=== PATIENT | female | born 1980 | race Caucasian/White ===

== ENCOUNTER 2016-05-02 00:51 | Inpatient (IN) ==
[2016-05-02 01:07] LABS: URINE CULTURE PL NEEDED? NO
[2016-05-02 01:07] LABS: MANUAL DIFF NEEDED? NO
[2016-05-02 01:14] LABS: BILIRUBIN URINE NEGATIVE (NEGATIVE); BLOOD URINE NEGATIVE (NEGATIVE); CLARITY CLEAR (CLEAR); COLOR YELLOW; GLUCOSE URINE NEGATIVE (NEGATIVE); LEUKOCYTES URINE NEGATIVE (NEGATIVE); NITRITE URINE NEGATIVE (NEGATIVE); PH URINE 6.5; PROTEIN URINE NEGATIVE (NEGATIVE); UROBILINOGEN URINE NORMAL
[2016-05-02 01:19] LABS: UR AMPHETAMINES QUAL NONE DETECTED (NONE DETECT); UR BARBITUATES QUAL NONE DETECTED (NONE DETECT); UR BENZODIAZEPIN QUAL PRESUMPTIVE POSITIVE (NONE DETECT); UR CANNABINOIDS QUAL PRESUMPTIVE POSITIVE (NONE DETECT); UR COCAINE QUAL NONE DETECTED (NONE DETECT); UR MDMA QUAL NONE DETECTED (NONE DETECT); UR METHADONE QUAL NONE DETECTED (NONE DETECT); UR METHAMPHETAMINE QUAL NONE DETECTED (NONE DETECT); UR OPIATES QUAL NONE DETECTED (NONE DETECT); UR OXYCODONE QUAL NONE DETECTED (NONE DETECT); UR PCP QUAL NONE DETECTED (NONE DETECT); UR TCA QUAL NONE DETECTED (NONE DETECT)
[2016-05-02 01:30] LABS: BASO% 1.5 % (0.0-0.8); EOS# 0.37 X1000 (0.0-0.7); EOS% 5.4 % (0.0-10.0); HEMATOCRIT 36.5 % (37.0-47.0); HEMOGLOBIN 12.6 g/dL (12.0-16.0); IMM GRAN# 0.01 X1000 (0.0-0.04); IMM GRAN% 0.1 % (0.0-0.5); LYMPH# 3.02 X1000 (1.2-3.4); MCH 29.5 PG (27-31); MCHC 34.5 g/dL (33-37); MCV 85.5 FL (81-99); MONO# 0.57 X1000 (0.11-0.59); MONO% 8.3 % (1.7-9.3); MPV 10.5 FL (7.4-10.4); NEUT% 40.7 % (42.2-75.2); PLT 278 X1000 (130-400); RBC 4.27 XMIL (4.2-5.4)
--- NOTE | 2016-05-02 01:30 | PROVIDER DOCUMENTATION ---
HPI-Head Injury <Odalis RoqueSal - Last Filed: 05/02/16 01:49> - General Source: patient - History of Present Illness-Head Injury Head Injury Location: reports: other (facial-left cheekbone) Other injuries associated with incident:: reports: head Severity: reports: moderate Onset/Duration: reports: this evening Timing: reports: still present Method of Injury: reports: fell Any recent trauma/injury?: reports: other (face) Loss of Consciousness: dazed Injury Associated Symptoms: reports: headaches, nausea. denies: vomiting, weakness <Inez Truong - Last Filed: 05/02/16 02:48> <Enrique Simpsno - Last Filed: 05/02/16 04:09> - General Chief Complaint: Overdose Stated Complaint: overdose Time Seen by Provider: 05/02/16 01:09 Allergies/Adverse Reactions: Patient Allergies Allergy/AdvReac Type Severity Reaction Status Date / Time Penicillins Allergy Mild NAUSEA Verified 11/08/15 20:54 Home Medications: Home Medication List Medication Instructions Recorded Confirmed Last Taken Type Hydroxyzine Pamoate [Vistaril] 25 mg PO TID PRN PRN #90 capsule 11/08/15 Unknown Rx Paroxetine HCl [Paxil] 20 mg PO DAILY #30 tablet 11/08/15 Unknown Rx Prochlorperazine [Compazine] 10 mg PO TID PRN PRN #20 tablet 11/08/15 Unknown Rx - History of Present Illness-Head Injury Nature of Presenting Problem: 35 Y/O F presents to ED with Overdose. Pt states that she doesn't remember how she got to the hospital. Pt was brought in by EMS, EMS stated that Pt " fell in the bathtub", pt was found in the bathtub,intoxicated. Pt stated that she took 3 bars of Xanax and ETOH. Nauseated with dry heaves in ED. Sleepy but able to arouse. Pt has a hematoma on her cheekbone and left eye. Pt states that she remembers arguing with her ex, was drinking and went to her brother's house took the Xanax, also states she takes Prozac for her depression, and smokes marijuana everyday. Pt was given Zofran and Narcan by EMS. (Inez Truong) Review of Systems - Adult - REVIEW OF SYSTEMS - ADULT Constitutional: denies: chills, fever Eyes: reports: other (swollen left eye, contussion above right eye) Ears, Nose, Mouth & Throat: reports: no symptoms reported Cardiovascular: reports: no symptoms reported Respiratory: reports: no symptoms reported Gastrointestinal: reports: nausea. denies: abdominal pain, diarrhea, vomiting Genitourinary: reports: no symptoms reported Musculoskeletal: reports: no symptoms reported Integumentary: reports: no symptoms reported Neurological: reports: headache/migraines, syncope. denies: dizziness/vertigo Psychiatric: reports: anti-depressant use, alcohol/drug dependence Endocrine: reports: no symptoms reported Hematologic/Lymphatic: reports: no symptoms reported Allergic/Immunologic: reports: no symptoms reported All Other Systems: Reviewed and Negative <Inez Truong - Last Filed: 05/02/16 02:48> Past History - Adult - PAST MEDICAL HISTORY-ADULT Review of Records: reports: Old Records Reviewed, Nursing Assessment Review, Medications Reviewed, Social history reviewed & non-contributory. Musculoskeletal: reports: other fractures (RT 5TH FINGER) Neurological: reports: Seizures/Epilepsy Psychiatric: reports: anxiety, other Endocrine/Immune: reports: denies history Other Conditions: reports: denies history - PRIOR SURGERIES/PROCEDURES Surgical/Procedure History: reports: orthopedic (extremity) - IMMUNIZATION STATUS Childhood Immunizations: See Nurse Assessment Flu Vaccine: See Nurse Assessment - FAMILY HISTORY Family History: reviewed, not pertinent - SOCIAL HISTORY Substance Use: marijuana <DionneInez Mtz Last Filed: 05/02/16 02:48> Physical Exam- Neurological - Physical Exam-Neuro Initial Vital Signs Reviewed: Yes General Appearance: appears well, no apparent distress, anxious Eye Exam: bilateral eye: normal inspection, PERRL, EOMI HENMT: moist mucous membranes, other (left superior and inferior orbit with ecchymosis and STS) Neck: non-tender, full range of motion, supple Respiratory: chest non-tender, lungs clear, normal breath sounds Cardiovascular: regular rate, rhythm, no edema Abdominal Exam: normal bowel sounds, non tender, soft Extremity: normal inspection, no pedal edema [facility] [employer] [facility] Exam: normal hearing, normal speech, PERRL Motor/Sensory: no motor deficit, no sensory deficit Neurologic: [facility] II-XII nml as tested, grossly normal, no motor/sensory deficits Integumentary: normal color, normal turgor, warm/dry. negative: signs of IVDA Psych/Mental Status: anxious - Glascow Coma Scale Best Eye Response: (4) open spontaneously Best Verbal Response: (5) oriented Best Motor Response: (6) obeys commands Total Glascow Score: 15 (admits she is unsure how she got to the hospital but knows she is at the hospital) <Odalis Roque - Last Filed: 05/02/16 01:49> Progress - CHANGE OF SHIFT REPORT (ED Provider) Report Given and Care Transferred to:: [facility] Time of Transfer: 01:49 Items Pending: Labs, CT/MRI Results <Odalis Roque - Last Filed: 05/02/16 01:49> - CHANGE OF SHIFT REPORT (ED Provider) Report Given and Care Transferred to:: Time of Transfer: 02:00 Items Pending: Labs, Other ([id number], POC) <Inez Truong - Last Filed: 05/02/16 02:48> - CT/MRI 1 CT Study: Cervical Spine, Head Impression: Normal <Enrique Simpson - Last Filed: 05/02/16 04:09> - PLAN OF CARE/RESULTS Progress/Plan/Lab Results: Laboratory Tests 05/02/16 05/02/16 05/02/16 00:53 00:53 00:53 WBC 6.86 RBC 4.27 Hgb 12.6 Hct 36.5 L MCV 85.5 MCH 29.5 MCHC 34.5 RDW Std Deviation 12.2 Plt Count 278 MPV 10.5 H Immature Gran % (Auto) 0.1 Neut % (Auto) 40.7 L Lymph % (Auto) 44.0 Gem % (Auto) 8.3 Eos % (Auto) 5.4 Baso % (Auto) 1.5 H Immature Gran # (Auto) 0.01 Neut # (Auto) 2.79 Lymph # (Auto) 3.02 Gem # (Auto) 0.57 Eos # (Auto) 0.37 Baso # (Auto) 0.10 Sodium 141 Potassium 3.4 L Chloride 105 Carbon Dioxide 23 L Anion Gap 13 BUN 11 Creatinine 0.5 Estimated GFR/1.73 m2 > 60 BUN/Creatinine Ratio 22 Glucose 83 Calculated Osmolality 280 Calcium 8.0 L Total Bilirubin 0.30 AST 11 ALT 9 L Alkaline Phosphatase 50 Total Protein 6.5 Albumin 4.1 Globulin 2.0 Albumin/Globulin Ratio 2.0 Urine Source Urine Color Urine Clarity Urine pH Ur Specific Wetmore Urine Protein Urine Ketones Urine Blood Urine Nitrite Urine Bilirubin Urine Urobilinogen Urine Microscopic RBC Urine WBC Urine Microscopic WBC Ur Epithelial Cells Urine Bacteria Urine Glucose Salicylates < 3.00 L Urine Opiates Screen Ur Oxycodone Screen Urine Methadone Screen Acetaminophen < 1.2 L Ur Barbituates Screen Ur Tricyclics Screen Ur Phencyclidine Scrn Ur Amphetamines Screen U Methamphetamines Scrn Urine MDMA Screen U Benzodiazepines Scrn Urine Cocaine Screen U Cannabinoids Screen Plasma/Serum Ethyl Alc 206 H 05/02/16 05/02/16 01:00 01:00 WBC RBC Hgb Hct MCV MCH MCHC RDW Std Deviation Plt Count MPV Immature Gran % (Auto) Neut % (Auto) Lymph % (Auto) Gem % (Auto) Eos % (Auto) Baso % (Auto) Immature Gran # (Auto) Neut # (Auto) Lymph # (Auto) Gem # (Auto) Eos # (Auto) Baso # (Auto) Sodium Potassium Chloride Carbon Dioxide Anion Gap BUN Creatinine Estimated GFR/1.73 m2 BUN/Creatinine Ratio Glucose Calculated Osmolality Calcium Total Bilirubin AST ALT Alkaline Phosphatase Total Protein Albumin Globulin Albumin/Globulin Ratio Urine Source CATH Urine Color YELLOW Urine Clarity CLEAR Urine pH 6.5 Ur Specific Wetmore 1.000 Urine Protein NEGATIVE Urine Ketones NEGATIVE Urine Blood NEGATIVE Urine Nitrite NEGATIVE Urine Bilirubin NEGATIVE Urine Urobilinogen NORMAL Urine Microscopic RBC <10 Urine WBC NEGATIVE Urine Microscopic WBC <10 Ur Epithelial Cells <10 Urine Bacteria NEGATIVE Urine Glucose NEGATIVE Salicylates Urine Opiates Screen NONE DETECTED Ur Oxycodone Screen NONE DETECTED Urine Methadone Screen NONE DETECTED Acetaminophen Ur Barbituates Screen NONE DETECTED Ur Tricyclics Screen NONE DETECTED Ur Phencyclidine Scrn NONE DETECTED Ur Amphetamines Screen NONE DETECTED U Methamphetamines Scrn NONE DETECTED Urine MDMA Screen NONE DETECTED U Benzodiazepines Scrn PRESUMPTIVE POSITIVE A Urine Cocaine Screen NONE DETECTED U Cannabinoids Screen PRESUMPTIVE POSITIVE A Plasma/Serum Ethyl Alc Orders Category Date Time Status Admit - [facility] Routine AdmDCTranf 05/02/16 04:03 Ordered Activity - Bed Rest with BRP ORDERED Care 05/02/16 04:03 Active Arellano Cath Insertion ORDERED Care 05/02/16 00:59 Active Misc. NRSG Communication Order DIRECTED Care 05/02/16 01:04 Active Neurological Check Q4H Care 05/02/16 04:04 Active Vital Signs Order ARRIVAL TO ROOM Care 05/02/16 04:03 Active Vital Signs Order Q 4-HR ASSESS Care 05/02/16 04:03 Active Regular Diet Diet 05/02/16 04:05 Active HEAD/C-SPINE W/O CONTRAST [CT] Stat Exams 05/02/16 01:49 Taken ACETAMINOPHEN [TDM] Stat Lab 05/02/16 00:53 Completed CBC WITH DIFF [HEME] Stat Lab 05/02/16 00:53 Completed COMPREHENSIVE METABOLIC PANEL [CHEM] Stat Lab 05/02/16 00:53 Completed ETOH [ALCOHOL BLOOD] Stat Lab 05/02/16 00:53 Completed SALICYLATES [TDM] Stat Lab 05/02/16 00:53 Completed UA NIMS W/REFLEX CULT PL [URINALYSIS] Stat Lab 05/02/16 01:00 Completed URINE DRUG SCREEN PL Stat Lab 05/02/16 01:00 Completed 0.9% Sodium Chloride Inj [Ns] 1,000 ml Med 05/02/16 04:15 Ordered IV 125 mls/hr Telemetry [OM.EQ] Routine Oth 05/02/16 04:03 Active Transfer/Admit Order [TRANSFER] Routine Transfer 05/02/16 04:06 Ordered Vital Signs - 24 hr 05/02/16 05/02/16 05/02/16 00:51 01:02 03:06 Pulse Rate 102 H 84 95 H Respiratory 24 20 19 Rate Blood Pressure 133/92 117/69 91/53 O2 Sat by Pulse 97 100 97 Oximetry Vital Signs - 24 hr 05/02/16 05/02/16 05/02/16 00:51 01:02 03:06 Pulse Rate 102 H 84 95 H Respiratory 24 20 19 Rate Blood Pressure 133/92 117/69 91/53 O2 Sat by Pulse 97 100 97 Oximetry (Enrique Simpson) Departure <Odalis Roque - Last Filed: 05/02/16 01:49> <Inez Truong - Last Filed: 05/02/16 02:48> - Departure Time of Disposition Order: 04:08 Certified Medical Emergency: Emergent <Enrique Simpson - Last Filed: 05/02/16 04:09> - Departure DIAGNOSIS: Overdose of benzodiazepine, Alcohol abuse Disposition: ADMITTED INPATIENT 09 Condition: Stable Attestation - Scribe Verification/Attestation Scribe:: Inez Truong Acting as Scribe for:: Enrique Simpson Scribe documention review:: This chart was documented by a scribe and accurately reflects the service the provider performed and the decisions made by the provider. - Physician/ LOVE Attestation Patient care was provided by Advanced Practice Provider:: Yes Advanced Practice Provider:: Odalis Roque Advanced Practice Provider documentation review:: The Mid-level provider documentation, treatment plan and medical decision making was reviewed by the physician who agrees with all treatment and medical decision making by the MLP. <Inez Truong - Last Filed: 05/02/16 02:48> Physician Attestation
[2016-05-02 01:35] LABS: URINE SOURCE CATH
[2016-05-02 01:36] LABS: URINE EPITHELIAL CELLS <10 /HPF (<10); URINE RBC <10 /HPF (<10); URINE WBC <10 /HPF (<10)
[2016-05-02 01:54] LABS: ACETAMINOPHEN < 1.2 ug/mL (10-30); AGAP 13; ALBUMIN 4.1 g/dL (3.5-5.0); ALKALINE PHOSPHATASE 50 U/L (32-104); BUN 11 mg/dL (8-22); CHLORIDE 105 mmol/L (98-107); COSMO 280; GOT 11 U/L (10-30); GPT 9 U/L (10-36); POTASSIUM 3.4 mmol/L (3.5-5.1); SODIUM 141 mmol/L (136-145); TCO2 23 mmol/L (25-35); TOTAL PROTEIN 6.5 g/dL (6.3-8.3)
[2016-05-02] MEDS: NS 1,000 ML IV SCH ×2 (05:00→12:25)
[2016-05-02] MEDS: ZOFRAN IV PRN ×4 (05:15→21:31)
--- NOTE | 2016-05-02 06:37 | Diag Imaging Result Document ---
PROCEDURE NAME: HEAD/C-SPINE W/O CONTRAST - 05/02/2016 CT BRAIN AND CERVICAL SPINE WITHOUT CONTRAST: TECHNIQUE: Dose-reduction protocol. BRAIN WITHOUT: FINDINGS: No parenchymal hemorrhage. No epidural or subdural hematoma. No subarachnoid hemorrhage. No hydrocephalus. No mass identified on this noncontrasted exam. No skull fracture. No sinus opacification. IMPRESSION: No hemorrhage. No injury. CT CERVICAL SPINE WITHOUT CONTRAST: FINDINGS: There is good alignment of the cervical spine. No precervical soft tissue swelling. No subluxation. No fracture. 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 This is a normal variant. IMPRESSION: No acute bony injury. A preliminary report was given at 2:52 a.m. MTDD
[2016-05-02] MEDS ORDERED: ATIVAN IV PRN (07:35)
--- NOTE | 2016-05-02 07:36 | Diag Imaging Result Document ---
PROCEDURE NAME: CHEST-PORTABLE - 05/02/2016 PORTABLE CHEST: COMPARISON: Compared to 11/18/2013. FINDINGS: The lungs are well expanded. The heart is not enlarged. The vessels are not distended. Endotracheal tube is in good position. Nasogastric tube overlies the esophagus and stomach. No pneumonia. No pleural effusions identified. There is scoliosis. IMPRESSION: Nasogastric tube enters the stomach with approximately 7 cm overlying the stomach.
[2016-05-02 10:36] LABS: HEMATOCRIT 36.8 % (37.0-47.0); HEMOGLOBIN 12.4 g/dL (12.0-16.0)
[2016-05-02] MEDS ORDERED: M.V.I.-12 10 ML, FOLIC ACID 1 MG, MAGNESIUM SULFATE 1 GM, THIAMINE 100 MG in NS 1,000 ML IV ONE ×2 (12:09→12:17)
--- NOTE | 2016-05-02 12:16 | HISTORY AND PHYSICAL ---
CHIEF COMPLAINT: Overdose. HISTORY OF PRESENTING ILLNESS: This is a 35-year-old female who was brought into the emergency room at [facility], [place] by EMS after they were called stating that the patient had fell in the bathtub. EMS reported that they found her in the bathtub naked at the time and intoxicated. The patient stated at that time that she took 3 bars of Xanax and alcohol. She was nauseated and dry heaving when she arrived to the ED. She was lethargic but arousable. She was noted to have a hematoma on her left cheek bone and left eye was bruised. Patient stated in the ER that she remembered arguing with her ex, had been drinking, went to her brother's house, and took the Xanax. States that she takes Prozac for depression and smokes marijuana every day. According to ER records, she had been given Zofran and Narcan by EMS prior to arrival. So, she is now being admitted for further evaluation and treatment. PAST MEDICAL HISTORY: Seizure, panic attacks, depression. PAST SURGICAL HISTORY: Back surgery and a cyst removed. FAMILY HISTORY: Noncontributory. SOCIAL HISTORY: She lives alone. Smokes 1 pack of cigarettes a day. States that she drinks alcohol intermittently and has a history of substance abuse. ALLERGIES: Penicillin. HOME MEDICATIONS: She does not take any home medications routinely at this time. LABORATORY DATA: White blood cell count of 6.86, hemoglobin of 12.6, hematocrit 36.5, platelets 278,000. Sodium of 141, potassium 3.4, chloride 105, CO2 23, BUN of 11, creatinine 0.5, glucose 83, AST of 11, ALT 9, alkaline phosphatase of 50. Urinalysis was normal. Salicylates were less than 3. Acetaminophen less than 1.2. Her urine drug screen was positive for benzodiazepines and cannabinoids. Serum alcohol level on arrival was 206. CT of the head showed no hemorrhage and no injury. CT of cervical spine showed no acute bony injury. Chest x-ray showed an impression of nasogastric tube that entered the stomach was approximately 7 cm overlying the stomach. No pneumonia. No pleural effusions identified. REVIEW OF SYSTEMS: She denied any fever, chills, blurred vision, dizziness, chest pain, coughing, shortness of breath. She is positive for nausea and vomiting and she does have vomiting that is persistent even with the NG tube placement. Denied any abdominal pain, constipation, burning, or hurting with urination. PHYSICAL EXAMINATION: VITAL SIGNS: Temperature 98.2 degrees, pulse 105, respirations were 16, blood pressure 144/89, saturating 100% on room air. GENERAL: This is a 35-year-old female who is sitting up in the bed and answering questions appropriately. HEENT: Patient is noted to have a hematoma to her left cheek and bruising to her left eye. Pupils are equal, round, reactive to light. The extraocular movements are intact. Oropharynx and nares are clear. NECK: Supple. LUNGS: Clear to auscultation bilaterally with equal lung expansion and chest wall movement. HEART: With regular rate and rhythm. No murmurs, rubs, or gallops. ABDOMEN: Soft, nontender, nondistended. Bowel sounds are present x4 quadrants. EXTREMITIES: No clubbing, cyanosis, or edema. NEUROLOGICAL: The cranial nerves 2 through 12 appear grossly intact. ASSESSMENT: 1. Overdose. 2. Ethanol abuse. 3. Drug abuse. 4. Mild hypokalemia. 5. Nausea and vomiting, intractable. PLAN: She was admitted to the intensive care unit at [facility], [place]. Placed on neuro checks q.4 hours for 24 hours, NPO. Placed on telemetry. Normal saline at 125 mL an hour. She has a nasogastric tube in place that is to low intermittent suction with dark contents being excreted from the tube. She has Zofran 4 mg IV q.4 hours p.r.n., Ativan 0.5 mg IV q.4 hours p.r.n. We repeated her hemoglobin and hematocrit this morning and it was 12.4 and 36.8. We repeated her ETOH and she is down to 33 now. Once patient is medically stable we will consult [facility] for psychiatric treatment. We will recheck a CBC and a BMP in the a.m. Dictated by JAILYN Fink for Uriel Nelson MD
[2016-05-02] MEDS ORDERED: TYLENOL PO PRN (15:13)
[2016-05-03] MEDS: ZOFRAN IV PRN ×4 (02:40→20:09)
[2016-05-03 05:57] LABS: MANUAL DIFF NEEDED? NO
[2016-05-03 06:16] LABS: AGAP 11; BUN 5 mg/dL (8-22); CALCIUM 7.9 mg/dL (8.8-10.2); CHLORIDE 102 mmol/L (98-107); COSMO 267; POTASSIUM 3.3 mmol/L (3.5-5.1); SODIUM 135 mmol/L (136-145); TCO2 23 mmol/L (25-35)
[2016-05-03] MEDS ORDERED: M.V.I.-12 10 ML, FOLIC ACID 1 MG, MAGNESIUM SULFATE 1 GM, THIAMINE 100 MG in NS 1,000 ML IV SCH (09:00)
[2016-05-03 10:01] LABS: EOS# 0.17 X1000 (0.0-0.7); EOS% 2.8 % (0.0-10.0); HEMATOCRIT 35.5 % (37.0-47.0); HEMOGLOBIN 11.5 g/dL (12.0-16.0); IMM GRAN# 0.01 X1000 (0.0-0.04); IMM GRAN% 0.2 % (0.0-0.5); LYMPH# 1.73 X1000 (1.2-3.4); LYMPH% 28.5 % (20.5-51.1); MCH 28.3 PG (27-31); MCHC 32.4 g/dL (33-37); MCV 87.4 FL (81-99); MONO# 0.48 X1000 (0.11-0.59); MONO% 7.9 % (1.7-9.3); MPV 10.8 FL (7.4-10.4); NEUT% 59.6 % (42.2-75.2); PLT 252 X1000 (130-400); RBC 4.06 XMIL (4.2-5.4)
[2016-05-03] MEDS: NS 1,000 ML IV SCH ×2 (11:12→17:46)
[2016-05-03] MEDS ORDERED: KLOR-CON PO ONE (12:38)
[2016-05-04] MEDS: NS 1,000 ML IV SCH (01:35)
[2016-05-04] MEDS: ZOFRAN IV PRN ×2 (03:37→07:46)
--- NOTE | 2016-05-04 08:51 | PROGRESS NOTE ---
DATE: 05/03/2016 SUBJECTIVE: The patient without new complaints today. She feels nauseated, although this improving. She still notes that she is stressed and depressed and feels as though she may hurt herself. PHYSICAL EXAMINATION: Vital Signs: Temperature 97 degrees, pulse 92, respiratory rate 16, blood pressure 122/81, saturation 95% on room air. General: The patient is a well-developed, well- nourished female, who is currently in no real respiratory distress. She has an NG tube placed. HEENT: Normocephalic, atraumatic. GABE. Neck: Supple. Cardiovascular: Regular rate. Chest: Relatively clear. Abdomen: Soft. Extremities: Moves all extremities. Neurologic: No changes. ASSESSMENT: 1. Acute suicide attempt with continued suicide ideation. 2. Nausea and vomiting, improved. 3. Chronic alcohol with acute ethanol abuse. 4. Chronic drug abuse. 5. Hypokalemia, improving. PLAN: We will hopefully be able to discontinue her NG tube today. We will be able to advance her diet. Continue to discuss with Gisell Hernandez further inpatient treatment. We will continue to wean off other medications, and we will follow her for alcohol withdrawal.
[2016-05-04] MEDS ORDERED: M.V.I.-12 10 ML, FOLIC ACID 1 MG, MAGNESIUM SULFATE 1 GM, THIAMINE 100 MG in NS 1,000 ML IV SCH (09:00)
[2016-05-04] MEDS: LIBRIUM PO SCH ×2 (09:01→12:34)
--- NOTE | 2016-05-04 09:35 | PROGRESS NOTE ---
DATE: 05/04/2016 SUBJECTIVE: Patient without any complaints today. She denies any nausea, vomiting. Denies any abdominal pain. Denies chest pain or palpitations. Patient actually finally was honest with us and states that she has been drinking heavily for the past 60 days. OBJECTIVE: Vital Signs: Reviewed. Temperature 97.4 degrees, pulse 92, respiratory rate 18, BP 121/66, saturating 100% on room air. General: Patient is well developed, well nourished. She is currently in no real respiratory distress. She is awake, alert, oriented. Neck: Supple. CV: Regular rate. Chest: Relatively clear. Abdomen: Soft, nondistended, nontender. Neurologic: No focal changes. ASSESSMENT: 1. Intractable nausea and vomiting, resolved. NG-tube has been pulled. She is able to start eating and drinking a regular diet. 2. Chronic alcohol abuse. As patient has a long history of alcohol abuse we will start her on low-dose Librium at 25 mg 3 times a day and will continue to wean down to try to prevent acute DTs and withdrawal symptoms. 3. Suicidal ideations. Patient will continue inpatient as we are looking for further inpatient psychiatric beds. 4. Chronic drug abuse. PLAN: As noted, we will start her on Librium. We will saline lock. Continue Zofran as needed. Continue to look for further inpatient treatment.
[2016-05-04 11:14] VITALS: BP 152/76
--- NOTE | 2016-05-04 11:54 | DISCHARGE SUMMARY ---
ADMISSION DATE: 05/02/2016 DISCHARGE DATE: 05/04/2016 ADMISSION DIAGNOSES: 1. Overdose. 2. Ethanol abuse. 3. Drug abuse. 4. Mild hypokalemia. 5. Intractable nausea and vomiting. DISCHARGE DIAGNOSES: 1. Overdose, stable. 2. Ethanol abuse. 3. Drug abuse. 4. Mild hypokalemia, stable. 5. Nausea and vomiting, intractable, resolved. SUMMARY OF FINDINGS: This is a 35-year-old, female who was brought to the emergency room by EMS after they were called, stating that the patient had fallen in her bathtub. EMS stated that they had found her in her bathtub naked and intoxicated. States that she had gone to her brother's house and took 3 bars of Xanax along with alcohol. Was nauseated and dry heaving when she arrived to the ED, lethargic but arousable. She was noted to have a hematoma on her left cheek and her left eye was bruised. Stated in the ER that she remembered arguing with her ex and had been drinking, and she went to her brother's house and took the Xanax. States that she also takes Prozac for depression and smokes marijuana daily. Her nausea and vomiting were intractable. We placed an NG tube to low intermittent suction. Held her n.p.o. Gave her normal saline at 125 mL an hour. Monitored her ETOH level, which on arrival was noted to be 206. The next morning, it was down to 33. She had a consult from [facility] on 05/03/2016 who felt that she did need inpatient treatment for the overdose and depression but they did not have a bed available at that time. We involved social work who found a bed today available at [facility] in [place] so she will be discharged to them at this time for further psychiatric inpatient treatment and evaluation. DISCHARGE MEDICATIONS: We will not give her any prescriptions. We will give them a list of what she has been on here and they can continue as appropriate. She has been taking Librium 25 mg p.o. t.i.d., Cogentin 1 mg p.o. at bedtime, Prozac 20 mg p.o. daily, Vistaril 25 mg p.o. t.i.d., olanzapine 5 mg p.o. at bedtime, Zofran 8 mg p.o. b.i.d. p.r.n. FOLLOWUP: [facility] will set her up for her all of her followup appointments once her inpatient psychiatric treatment is completed. Discharge summary of 35 minutes. Dictated by JAILYN Fink for Uriel Nelson MD
== END 2016-05-04 12:45 | DRG 918 ==
LOC: P.ED 00:51 → P.ICU 04:26 → OBSVTOIN 04:26
PROVIDERS: ATTEND Internal Medicine
PROC: 0D9670Z Drainage of Stomach with Drainage Device, Via Natural or Artificial Opening (ICD-10-PCS; principal; 2016-05-02)
DX: T42.4X2A Poisoning by benzodiazepines, intentional self-harm, initial encounter (principal); E87.6 Hypokalemia; T51.0X2A Toxic effect of ethanol, intentional self-harm, initial encounter; S05.12XA Contusion of eyeball and orbital tissues, left eye, initial encounter; F12.10 Cannabis abuse, uncomplicated; F10.10 Alcohol abuse, uncomplicated; F17.210 Nicotine dependence, cigarettes, uncomplicated; W18.2XXA Fall in (into) shower or empty bathtub, initial encounter
CPT/HCPCS: 51702; 70450; 71010; 72125; 80048; 80053; 80305; 81001; 85014; 85018; 85025; 96360; G0480; J2405; J3411; J3475; J7030; 80320; 80324; 80329